=== PATIENT | male | born 1975 | race American Indian/Alaskan Native ===

== ENCOUNTER 2016-03-11 09:02 | Emergency (ER) | payer MEDICARE ==
[2016-03-11 09:53] LABS: Basophils % (Auto) 0.4 % (0.0-1.8); Eosinophils % (Auto) 1.2 % (0.0-4.3); Hematocrit 48.3 % (35.5-45.6); Hemoglobin 16.4 gm/dl (11.8-15.2); Mean Corpuscular HGB Conc 34 % (32-34); Mean Corpuscular Hemoglobin 33 pg (28-32); Mean Corpuscular Volume 96 fl (84-94); Platelet Count 155 K/mm3 (140-440); Red Blood Count 5.05 M/mm3 (3.65-5.03); Red Cell Distribution Width 13.3 % (13.2-15.2); White Blood Count 4.7 K/mm3 (4.5-11.0)
[2016-03-11 10:01] LABS: Anion Gap 18 mmol/L; Blood Urea Nitrogen 9 mg/dL (9-20); Calcium 9.4 mg/dL (8.4-10.2); Carbon Dioxide 26 mmol/L (22-30); Chloride 101.3 mmol/L (98-107); Glucose 86 mg/dL (75-100); Potassium 3.8 mmol/L (3.6-5.0); Sodium 141 mmol/L (137-145)
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
[2016-03-11] MEDS ORDERED: NORCO 5/325 PO ONE (11:49)
[2016-03-11] MEDS ORDERED: ZOFRAN ODT PO ONE (12:10)
[2016-03-11 16:30] VITALS: BP 131/88
--- NOTE | 2016-03-11 16:32 | Emergency Department Report ---
HPI - General Chief Complaint: Chest Pain Time Seen by Provider: 03/11/16 15:30 - HPI HPI: Chief complaint: Chest pain HPI: Patient states he woke up this morning with pain to his back and substernal the same time which was worse with movement and swallowing. Patient denies cough or cold or any shortness of breath or diaphoresis. Patient took 800 mg Motrin at home and Skelaxin which she takes for his chronic low back pain and after arrival to the emergency department he was given some hydrocodone. Patient states he now does not have any pain in his chest. Patient is status post 2 lumbar back surgeries and was left with left foot drop and chronic pain radiating down his left leg. Patient sees his orthopedist for pain management and also takes tramadol and oxycodone as needed. Mode of arrival: private car Source: Patient Began: This morning upon awakening Duration: Several hours Context: No previous history of the same. Patient with out cardiac risk factors Quality: Sharp Severity: Currently 0 out of 10 Improved with: See above Worsened with: See above Associated signs and symptoms: No nausea vomiting diarrhea cough cold or fever ED Past Medical Hx - Past Medical History Previous Medical History?: Yes Additional medical history: Back pain - Surgical History Past Surgical History?: Yes Additional Surgical History: back surgery x 2 - Social History Smoking Status: Current Every Day Smoker Substance Use Type: Alcohol, Non Opiate Pain - Medications Home Medications: Home Medications Medication Instructions Recorded Confirmed Last Taken Type Pantoprazole [Protonix] 40 mg PO QDAY #10 tablet 03/11/16 Unknown Rx ED Review of Systems ROS: Stated complaint: CHEST PAIN/BACK PAIN Other details as noted in HPI ROS Constitutional: No fever ENT: No uri symptoms Cardiovascular: chest pain Respiratory: No sob or cough GI: No nausea vomiting or diarrhea : No dysuria frequency or urgency, Skin: No rash Neuro: See HPI Psych: No depression Kev/lymph: No edema Physical Exam - Physical Exam Vital Signs: Vital Signs 03/11/16 09:14 Temperature 98.2 F Pulse Rate 77 Respiratory 22 Rate Blood Pressure 139/94 O2 Sat by Pulse 99 Oximetry Physical Exam: GENERAL: The patient is well-developed well-nourished . HEENT: Normocephalic. Atraumatic. Extraocular motions are intact. Patient has moist mucous membranes. NECK: Supple. No meningitic signs are noted. There is no adenopathy noted. CHEST/LUNGS: Clear to auscultation. There is no respiratory distress noted. HEART/CARDIOVASCULAR: Regular. There is no tachycardia. There is no gallop rub or murmur. ABDOMEN: Abdomen is soft, nontender. Patient has normal bowel sounds. There is no abdominal distention. SKIN: There is no rash. There is no edema. There is no diaphoresis. NEURO: The patient is awake, alert, and oriented. The patient is cooperative. The patient has no focal neurologic deficits. The patient has normal speech. MUSCULOSKELETAL: There is no tenderness or deformity. There is no limitation range of motion. There is no evidence of acute injury. ED Course Vital Signs 03/11/16 09:14 Temperature 98.2 F Pulse Rate 77 Respiratory 22 Rate Blood Pressure 139/94 O2 Sat by Pulse 99 Oximetry ED Medical Decision Making - Lab Data Result diagrams: 03/11/16 09:30 03/11/16 09:30 Laboratory Tests 03/11/16 03/11/16 03/11/16 09:30 12:31 14:54 Troponin T < 0.010 < 0.010 < 0.010 - EKG Data -: EKG Interpreted by Me EKG shows normal: sinus rhythm Rate: normal (66) - EKG Data When compared to previous EKG there are: previous EKG unavailable Interpretation: normal EKG - Radiology Data interpreted by me: Chest x-ray within normal limits. Critical care attestation.: If time is entered above; I have spent that time in minutes in the direct care of this critically ill patient, excluding procedure time. ED Disposition Clinical Impression: Atypical chest pain Disposition: DISCHARGED TO HOME OR SELFCARE Is pt being admited?: No Does the pt Need Aspirin: No Condition: Stable Instructions: Chest Pain (ED), Costochondritis (ED), Gastroesophageal Reflux Disease (ED) Prescriptions: Pantoprazole [Protonix] 40 mg PO QDAY #10 tablet Referrals: PRIMARY CARE, [Primary Care Provider] - 3-5 Days [facility] [Provider Group] - 3-5 Days Time of Disposition: 16:29
--- NOTE | 2016-03-12 09:46 | XRay Report ---
Chest 2 views: History: Chest pain. Findings: Normal cardiomediastinal silhouette. Trachea is midline. No consolidation, pneumothorax or pleural effusion. Impression No acute cardiopulmonary findings.
== END 2016-03-11 16:47 | disposition home or self-care (01) ==
LOC: ED 09:02
DX: R07.89 Other chest pain (principal); F17.200 Nicotine dependence, unspecified, uncomplicated
CPT/HCPCS: 36415; 71020; 80048; 84484; 85025; 93005; 93010; Q0162

== ENCOUNTER 2016-10-24 09:04 | Emergency (ER) | payer MEDICARE ==
[2016-10-24 09:19] VITALS: BP 147/106
[2016-10-24] MEDS ORDERED: TORADOL IM ONE (09:48)
[2016-10-24] MEDS ORDERED: NORCO 7.5/325 PO ONE (09:48)
--- NOTE | 2016-10-24 10:58 | Cat Scan Report ---
CT LUMBAR SPINE WITHOUT CONTRAST HISTORY: Spinal tenderness, history of surgery, pain. TECHNIQUE: Helical CT and 1.25 mm intervals with sagittal and coronal reformatted images. FINDINGS: No comparison. There is normal bone mineralization. Normal height and alignment of the lumbar vertebral bodies. No evidence for fracture, subluxation or bone lesion. Mild disc space narrowing and posterior bulging disc is identified at L4-5. Moderate disc space narrowing and posterior bulging disc is identified at L5-S1. The remaining levels are within normal limits. The facet joints are unremarkable. Although intraspinal contents is limited on noncontrast CT, no high-grade central canal stenosis or neural foraminal stenosis is appreciated. The paraspinal soft tissues are unremarkable. IMPRESSION: Mild lumbar spondylosis as described. No acute process noted.
--- NOTE | 2016-10-24 18:06 | Emergency Department Report ---
Entered by MAXX POTTS, acting as scribe for GEETHA OSEGUERA NP. ED Back Pain/Injury HPI - General Chief Complaint: Back Pain/Injury Stated Complaint: SEVERE BACK PAIN Time Seen by Provider: 10/24/16 09:32 Source: patient Limitations: No Limitations - History of Present Illness Initial Comments: This is a 41 y/o male, nontoxic, well nourished in appearance, no acute signs of distress with a PMHx of chronic low back pain presents with an acute sudden onset of low back pain that began 2 days ago. Patient states he was sweeping the floor and subsequently heard a click in his back. Rates pain a 10/10 in severity, which he describes as sharp in quality. Aggravated with movement and walking, and alleviated with immobilization. Reports the pain radiates to his left leg, but he denies urinary/bowel incontinence, dysuria, hematuria, fever, chills, chest pain, SOB, MANUEL or dizziness, numbness, and tingling. Notes PSHx 2009 on L4, L5, and S1. NKDA. TORREZ Complaint: back pain Onset/Timin -: days(s) Similar Symptoms Previously: Yes (PSHx of low back surgery) Place: home Radiation: left leg Severity: severe Severity scale (0 -10): 10 Quality: sharp Consistency: constant Improves With: immobilization Worsens With: movement, walking Context: other (sweeping the floor and heard a "click") Associated Symptoms: denies other symptoms. denies: confusion, weakness, chest pain, numbness, difficulty walking, cough, difficulty urinating, diaphoresis, incontinence, fever/chills, constipation, headaches, abdominal pain, loss of appetite, malaise, nausea/vomiting, rash, seizure, shortness of breath, syncope - Related Data Previous Rx's Medication Instructions Recorded Last Taken Type Pantoprazole [Protonix] 40 mg PO QDAY #10 tablet 03/11/16 Unknown Rx Cyclobenzaprine [Flexeril] 10 mg PO TID PRN #15 tablet 10/24/16 Unknown Rx Ibuprofen [Motrin 600 MG tab] 600 mg PO Q8H PRN #30 tablet 10/24/16 Unknown Rx traMADol [Ultram] 50 mg PO Q4HR PRN #15 tablet 10/24/16 Unknown Rx Allergies Allergy/AdvReac Type Severity Reaction Status Date / Time No Known Allergies Allergy Unverified 03/11/16 09:14 ED Review of Systems Comment: All other systems reviewed and negative Constitutional: denies: chills, fever Eyes: denies: eye pain, eye discharge, vision change ENT: denies: ear pain, throat pain Respiratory: denies: cough, orthopnea, shortness of breath, SOB with exertion, SOB at rest, stridor, wheezing Cardiovascular: denies: chest pain, palpitations, dyspnea on exertion, orthopnea , edema, syncope, paroxysmal nocturnal dyspnea Endocrine: no symptoms reported Gastrointestinal: denies: abdominal pain, nausea, vomiting, diarrhea Genitourinary: denies: urgency, dysuria Musculoskeletal: back pain (low back pain). denies: joint swelling, arthralgia , myalgia Skin: denies: rash, lesions Neurological: denies: headache, weakness, numbness, paresthesias, confusion, vertigo Psychiatric: denies: anxiety, depression Hematological/Lymphatic: denies: easy bleeding, easy bruising ED Past Medical Hx - Past Medical History Previous Medical History?: Yes Additional medical history: Back pain - Surgical History Past Surgical History?: Yes Additional Surgical History: back surgery x 2 - Family History Family history: no significant - Social History Smoking Status: Unknown if ever smoked Substance Use Type: None - Medications Home Medications: Home Medications Medication Instructions Recorded Confirmed Last Taken Type Pantoprazole [Protonix] 40 mg PO QDAY #10 tablet 03/11/16 Unknown Rx Cyclobenzaprine [Flexeril] 10 mg PO TID PRN #15 tablet 10/24/16 Unknown Rx Ibuprofen [Motrin 600 MG tab] 600 mg PO Q8H PRN #30 tablet 10/24/16 Unknown Rx traMADol [Ultram] 50 mg PO Q4HR PRN #15 tablet 10/24/16 Unknown Rx ED Physical Exam - General Limitations: No Limitations General appearance: alert, in no apparent distress - Head Head exam: Present: atraumatic, normocephalic - Eye Eye exam: Present: normal appearance, PERRL, EOMI. Absent: scleral icterus, conjunctival injection, nystagmus, periorbital swelling, periorbital tenderness Pupils: Present: normal accommodation - ENT ENT exam: Present: normal exam, normal orophraynx, mucous membranes moist, TM's normal bilaterally, normal external ear exam - Neck Neck exam: Present: normal inspection, full ROM. Absent: tenderness, meningismus, lymphadenopathy, thyromegaly - Respiratory Respiratory exam: Present: normal lung sounds bilaterally. Absent: respiratory distress, wheezes, rales, rhonchi, stridor, chest wall tenderness, accessory muscle use, decreased breath sounds, prolonged expiratory - Cardiovascular Cardiovascular Exam: Present: regular rate, normal rhythm, normal heart sounds. Absent: bradycardia, tachycardia, irregular rhythm, systolic murmur, diastolic murmur, rubs, gallop - GI/Abdominal GI/Abdominal exam: Present: soft, normal bowel sounds. Absent: distended, tenderness, guarding, rebound, rigid - Rectal Rectal exam: Present: deferred - Extremities Exam Extremities exam: Present: normal inspection, full ROM, normal capillary refill. Absent: tenderness, pedal edema, joint swelling, calf tenderness - Back Exam Back exam: Present: full ROM, tenderness (lumbar spinal tenderness), vertebral tenderness (lumbar). Absent: normal inspection, CVA tenderness (R), CVA tenderness (L), muscle spasm, paraspinal tenderness, rash noted - Neurological Exam Neurological exam: Present: alert, oriented X3, CN II-XII intact, normal gait ( limited due to low back pain), reflexes normal. Absent: motor sensory deficit - Psychiatric Psychiatric exam: Present: normal affect, normal mood - Skin Skin exam: Present: warm, dry, intact. Absent: rash ED Course Vital Signs 10/24/16 09:16 Temperature 98.3 F Pulse Rate 96 H Respiratory 18 Rate Blood Pressure 147/106 O2 Sat by Pulse 99 Oximetry - Reevaluation(s) Reevaluation #1: 10/24/16 10:08 Patient is speaking in full sentences with no signs of distress. Reevaluation #2: 10/24/16 10:08 Patients blood pressure is elevated with no hx of hypertension, may be related to pain. I will recheck b/p after medical treatment for pain. ED Medical Decision Making - Radiology Data Radiology results: report reviewed interpreted by me: Dr. Murray Mild lumbar spondylosis in L4-5. Moderate lumbar spondylosis L5-S1. ED Disposition Clinical Impression: Lumbar spondylolysis, Lumbar radiculopathy Disposition: TO HOME OR SELFCARE Is pt being admited?: No Does the pt Need Aspirin: No Condition: Stable Instructions: Lumbar Radiculopathy (ED), Low Back Strain (ED), Tramadol (By mouth), Ibuprofen (By mouth), Cyclobenzaprine (By mouth) Additional Instructions: Follow-up with your primary care doctor in 3-5 days or symptoms worsen a continue return to the emergency room as soon as possible. Take Ultram, Flexeril, and ibuprofen as prescribed. Do not operate any machinery while taking Ultram and Flexeril due to sedation/drowsiness. Prescriptions: Cyclobenzaprine [Flexeril] 10 mg PO TID PRN #15 tablet PRN Reason: Muscle Spasm Ibuprofen [Motrin 600 MG tab] 600 mg PO Q8H PRN #30 tablet PRN Reason: Pain traMADol [Ultram] 50 mg PO Q4HR PRN #15 tablet PRN Reason: Pain Referrals: [facility] [Other] - 3-5 Days [facility] [Outside] - 3-5 Days [facility] [Outside] - 3-5 Days This documentation as recorded by the DELROY kaur JASMINE,accurately reflects the service I personally performed and the decisions made by ANA ROSA sanchez MARTIN, BUCKY.
== END 2016-10-24 11:44 | disposition home or self-care (01) ==
LOC: ED 09:04
DX: M47.9 Spondylosis, unspecified (principal); M54.16 Radiculopathy, lumbar region
CPT/HCPCS: 72131; 96372; 99283; J1885

== ENCOUNTER 2018-09-24 17:23 | Emergency (ER) | payer OTHER, MEDICARE ==
[2018-09-24 18:14] VITALS: BP 131/96
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
[2018-09-24] MEDS ORDERED: IBUPROFEN PO ONE (20:24)
[2018-09-24] MEDS ORDERED: TYLENOL PO ONE (20:24)
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
== END 2018-09-24 22:20 | disposition home or self-care (01) ==
LOC: ED 17:23
DX: S29.012A Strain of muscle and tendon of back wall of thorax, initial encounter (principal); M62.830 Muscle spasm of back; F17.200 Nicotine dependence, unspecified, uncomplicated; Z79.899 Other long term (current) drug therapy; Z98.890 Other specified postprocedural states; V49.49XA Driver injured in collision with other motor vehicles in traffic accident, initial encounter; Y93.89 Activity, other specified; Y92.410 Unspecified street and highway as the place of occurrence of the external cause; Y99.8 Other external cause status
CPT/HCPCS: 72070; 72100